=== PATIENT | female | born 1955 | race Caucasian/White ===

== ENCOUNTER → 2018-05-05 06:48 | Outpatient (CLI) | payer OTHER, SELFPAY ==
[2018-05-05 07:34] LABS: Add Manual Diff / Slide Review NO; Basophils Percent Auto 0.9 % (0-2); Eosinophils Percent Auto 2.8 % (2-4); Hematocrit 39.4 % (36-46); Hemoglobin 13.4 g/dL (12.0-16.0); Lymphocytes Percent Auto 44.2 % (25-40); Mean Corpuscular Hemoglobin 29.3 PG (26-34); Mean Corpuscular Volume 86.2 fL (80-100); Monocytes Percent Auto 9.2 % (3-14); Neutrophils Absolute Auto 2400 /uL (3000-5900); Neutrophils Percent Auto 42.9 % (50-75); Platelet Count 278 X10^3/uL (150-400); Red Blood Cell Count 4.58 X10^6/uL (4.0-5.2); White Blood Cell Count 5.7 X10^3/uL (4.5-11.0)
[2018-05-05 07:58] LABS: Alanine Aminotransferase 25 IU/L (9-52); Albumin 4.1 g/dL (3.5-5.0); Albumin Globulin Ratio 1.5 (1.0-2.8); Alkaline Phosphatase 93 U/L (38-126); Aspartate Aminotransferase 27 IU/L (14-36); BUN Creatinine Ratio 21.4 (6-22); Bilirubin Total 0.6 mg/dL (0.2-1.3); Blood Urea Nitrogen 15 mg/dL (7-17); Calcium 9.8 mg/dL (8.4-10.2); Carbon Dioxide 27 mmol/L (22-32); Chloride 105 mmol/L (98-107); Cholesterol 206 mg/dL (140-199); Estimated Glomerular Filt Rate > 60.0 mL/min (>60); Globulin 2.8 g/dL (1.7-4.1); Glucose 104 mg/dL (80-110); HDL Cholesterol 55 mg/dL (40-60); HEMOLYSIS 16 (0-50); LDL Cholesterol Calculated 128 mg/dL (<100); Potassium 3.9 mmol/L (3.4-5.1); Sodium 143 mmol/L (137-145); Total Protein 6.9 g/dL (6.3-8.2); Triglycerides 117 mg/dL (35-150)
[2018-05-05 09:45] LABS: TSH w/ Reflex to FT4 3.35 uIU/mL (0.47-4.68)
== END ==
PROVIDERS: PCP Family Medicine; Visit Provider Family Medicine
DX: Z00.00 Encounter for general adult medical examination without abnormal findings (principal); E66.9 Obesity, unspecified; I10 Essential (primary) hypertension
CPT/HCPCS: 36415; 80053; 80061; 84443; 85025

== ENCOUNTER → 2018-09-04 08:53 | Outpatient (CLI) | payer OTHER, SELFPAY ==
[2018-09-04 09:55] LABS: Vitamin D 25 Hydroxy (D3) 45.4 ng/mL (30.0-100.0)
== END ==
PROVIDERS: PCP Family Medicine; Visit Provider Family Medicine
DX: M81.0 Age-related osteoporosis without current pathological fracture (principal)
CPT/HCPCS: 36415; 82306

== ENCOUNTER → 2018-09-11 15:07 | Outpatient (CLI) | payer OTHER, SELFPAY | PROVIDERS: PCP Family Medicine; Visit Provider Family Medicine | DX: M85.851 Other specified disorders of bone density and structure, right thigh (principal); Z78.0 Asymptomatic menopausal state; Z85.3 Personal history of malignant neoplasm of breast | CPT/HCPCS: 77080 ==

== ENCOUNTER → 2018-09-16 09:35 | Oncology outpatient (ONC) | payer OTHER, SELFPAY ==
[2018-09-16 10:19] VITALS: BP 130/70; PULSE 72; RESP 16; TEMP 36.8; O2SAT 96
--- NOTE | 2018-09-16 10:35 | P.PNONC_ITS ---
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 She also had a family history of breast cancer. Her mother had bilateral breast cancers at a young age. She did have BRCA 1 and 2 testing which were negative. The patient elected undergo bilateral mastectomy. At the time of surgery, no tumor was seen in the right breast but in the left there was DCIS. [place] lymph node was negative. Since then, the patient has been doing well. She has no specific complaints. She has had a little bit of numbness and tingling along the incision but has not felt any masses or adenopathy. She denies any new aches or pains. No shortness of breath or cough. No GI complaints. She feels well today. Her past medical history is notable for osteopenia. She has a history of DCIS as described above. She has had prior knee surgery and cholecystectomy. She currently is on no prescription medications but does take a number of vitamins. She also uses occasional Claritin [id number]. She reports an allergy to Septra. Her family history is notable for mother and grandmother with breast cancers. There is no other family history of malignancy. So history: She is . 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 She does not smoke. She has very rare alcohol use. - Patient Self-Reported Symptoms SR ears, nose, mouth, throat issues: Ears ringing, Congestion SR Skin issues: Skin lesions or moles SR Musculoskeletal issues: Joint pain or swelling Home Medications and Allergies Home Medications Medication Instructions Recorded Confirmed Type loratadine [Claritin] 10 mg PO Q DAY PRN #0 05/17/11 09/16/18 History multivitamin tablet 1 tab PO DAILY #90 tab 05/12/18 09/16/18 Rx Allergies Allergy/AdvReac Type Severity Reaction Status Date / Time Sulfa (Sulfonamide AdvReac Intermediate HOT Verified 09/04/18 08:26 Antibiotics) FLASHES, [SULFA (SULFONAMIDE WEAK ANTIBIOTICS)] Exam - Constitutional positive no acute distress, positive average body habitus - Routine HEENT Exam Head: Present: normocephalic, atraumatic Eye: Present: EOMI, PERRL. Absent: conjunctival icterus, scleral injection - Routine Neck Exam Present: supple. Absent: lymphadenopathy, thyromegaly - Routine Chest/Breast/Axilla Exam Chest wall exam standard: Absent: tenderness Breast: Present: right mastectomy, left mastectomy Axillae: Absent: lymphadenopathy - Routine Respiratory Exam Present: Clear to auscultation bilaterally. Absent: rales, wheezes - Routine Cardiovascular Exam Present: RRR, S1, S2. Absent: murmur - Routine Abdominal Exam Present: soft, normoactive bowel sounds. Absent: rebound, guarding, organomegaly, mass - Routine Extremities Exam Absent: cyanosis, clubbing, edema - Routine Back/Spine Exam Back/Spine: Absent: paraspinal tenderness, vertebral tenderness - Routine Skin Exam Present: intact. Absent: petechiae, rash - Routine Neurological Exam Present: alert, oriented X3 - Routine Psychiatric Exam Present: normal affect, normal thought process Results - Imaging Additional studies: Procedures Bilateral simple mastectomy (01/17/15) Excision of axillary lymph node (01/17/15) Assessment and Plan (1) Ductal carcinoma in situ (DCIS) of left breast Onset Date: 07/18/15 Current visit: No Status: None 63-year-old woman with a history of DCIS. She is status post bilateral mastectomy. She is negative for BRCA mutations. Essentially, her risk for recurrence of breast cancer is practically 0. There is no specific monitoring or intervention that needs to occur. It be reasonable to do a physical exam of the chest wall perhaps annually. I did explain to the patient that DCIS by definition is not an invasive cancer and does not spread. Patient's to have had DCIS are at risk for development of 2nd breast cancers that can be either invasive or pre invasive. Adjuvant hormone therapy has shown a decrease in the risk of breast cancer recurrence but no change in overall mortality. However, because she has had bilateral mastectomy she is really not at any risk for development of new breast cancer. At least in theory, some residual breast cancer cells may have been left behind after mastectomy which could transform. However in practice I think this risk is so small that no specific intervention is needed. The risk of hormone therapy I think would by far outweigh the benefit. I have not recommended any specific treatment for her. I have not scheduled a follow-up appointment for her but would be happy see her again in the future should new issues arise.
[2024-05-19 18:41] LABS: Alanine Aminotransferase 18 IU/L (<35); Albumin Globulin Ratio 1.4 (1.0-2.8); Alkaline Phosphatase 102 U/L (38-126); Aspartate Aminotransferase 30 IU/L (14-36); BUN Creatinine Ratio 15.4 (6-22); Bilirubin Total 0.6 mg/dL (0.2-1.3); Blood Urea Nitrogen 10 mg/dL (7-17); Calcium 8.9 mg/dL (8.4-10.2); Carbon Dioxide 24 mmol/L (22-32); Chloride 105 mmol/L (98-107); Estimated Glomerular Filt Rate > 60 mL/min (>60); Globulin 2.8 g/dL (1.7-4.1); Glucose 102 mg/dL (80-110); HEMOLYSIS < 15 (0-50); Potassium 3.5 mmol/L (3.4-5.1); Sodium 136 mmol/L (137-145); Total Protein 6.8 g/dL (6.3-8.2)
== END ==
PROVIDERS: Nurse Practitioner Family; Family Provider Family Medicine; PCP Family Medicine
DX: Z09 Encounter for follow-up examination after completed treatment for conditions other than malignant neoplasm (principal); Z86.000 Personal history of in-situ neoplasm of breast; Z80.3 Family history of malignant neoplasm of breast; M85.80 Other specified disorders of bone density and structure, unspecified site; Z90.13 Acquired absence of bilateral breasts and nipples
CPT/HCPCS: 80053; 99215

== ENCOUNTER → 2019-03-05 16:03 | Outpatient (CLI) | payer OTHER, SELFPAY ==
--- NOTE | 2019-03-05 16:05 | DI.MRI.S_ITS ---
PROCEDURE: MR HEAD/BRAIN WO CON INDICATIONS: visual changes, possible ocular migraines, normal eye exam TECHNIQUE: Non-contrast axial T1 spin echo, axial T2 fast spin echo, sagittal and axial FLAIR, coronal T2 fast spin echo, axial gradient echo, axial diffusion and ADC through the brain. COMPARISON: None. FINDINGS: Image quality: Excellent. CSF spaces: Ventricles appear symmetric in size and shape. Basal cisterns are patent. No extra-axial fluid collections. Brain: No intracranial bleeds or mass effects. There is cerebral volume loss for age. There are periventricular and deep white matter chronic small vessel ischemic changes. Brainstem appears normal. Diffusion-weighted images show no acute ischemic insults. No chronic ischemic insults. Normal intravascular flow voids are present. Skull and face: Calvarial bone marrow is normal in signal. Orbits are normal. Sinuses: Sinuses and mastoids are clear. There is moderate rightward nasal septal deviation seen. IMPRESSION: No imaging explanation is found for this patient's presenting symptoms. No findings of acute or subacute infarction can be seen. Dictated by: Eduardo Carreno M.D. on 03/05/2019 at 17:02 Approved by: Eduardo Carreno M.D. on 03/05/2019 at 17:03
== END ==
PROVIDERS: Family Provider Family Medicine; PCP Family Medicine; Visit Provider Family Medicine
DX: H53.9 Unspecified visual disturbance (principal)
CPT/HCPCS: 70551

== ENCOUNTER → 2022-04-29 06:58 | Outpatient (CLI) | payer OTHER, SELFPAY ==
[2022-04-29 08:10] LABS: Cholesterol 206 mg/dL (140-199); Glucose 102 mg/dL (80-110); HDL Cholesterol 59 mg/dL (40-60); LDL Cholesterol Calculated 126 mg/dL (<100); Triglycerides 107 mg/dL (35-150)
== END ==
PROVIDERS: Family Provider Family Medicine; PCP Family Medicine; Referring Provider Family Medicine; Visit Provider Family Medicine
DX: Z13.1 Encounter for screening for diabetes mellitus (principal); Z13.6 Encounter for screening for cardiovascular disorders
CPT/HCPCS: 36415; 80061; 82947

== ENCOUNTER → 2022-08-20 10:39 | Outpatient (CLI) | payer OTHER, SELFPAY ==
--- NOTE | 2022-08-20 10:41 | DI.RAD.S_ITS ---
PROCEDURE: XR FINGER RT MIN 2V INDICATIONS: Right Third Finger nodule TECHNIQUE: AP hand, 2 views of the 3rd finger(s) acquired. COMPARISON: None. FINDINGS: Bones: No fractures or dislocations. No suspicious bony lesions. Generalized decrease in osseous mineralization noted. Distal interphalangeal joint space narrowing with marginal osteophytes present. Soft tissue nodule noted over 3rd DIP osteophyte Soft tissues: No suspicious soft tissue calcifications. IMPRESSION: Soft tissue nodule probably related to prominent dorsal 3rd DIP osteophyte Approved by: Orlin Robles M.D. on 08/20/2022 at 15:37
== END ==
PROVIDERS: Family Provider Family Medicine; PCP Family Medicine; Referring Provider Family Medicine; Visit Provider Family Medicine
DX: R22.31 Localized swelling, mass and lump, right upper limb (principal)
CPT/HCPCS: 73140

== ENCOUNTER → 2023-07-02 14:23 | Outpatient (CLI) | payer OTHER, SELFPAY ==
[2023-07-02 15:00] LABS: Hematocrit 40.9 % (36-46); Hemoglobin 13.9 g/dL (12.0-16.0); Mean Corpuscular HGB Conc 33.9 % (30-36); Mean Corpuscular Hemoglobin 29.6 PG (26-34); Mean Corpuscular Volume 87.3 fL (80-100); Platelet Count 297 X10^3/uL (150-400); Red Blood Cell Count 4.68 X10^6/uL (4.0-5.2); White Blood Cell Count 6.5 X10^3/uL (4.5-11.0)
[2023-07-02 15:32] LABS: Alanine Aminotransferase 23 IU/L (<35); Albumin 4.3 g/dL (3.5-5.0); Albumin Globulin Ratio 1.5 (1.0-2.8); Alkaline Phosphatase 138 U/L (38-126); Aspartate Aminotransferase 30 IU/L (14-36); BUN Creatinine Ratio 19.7 (6-22); Bilirubin Total 0.6 mg/dL (0.2-1.3); Blood Urea Nitrogen 14 mg/dL (7-17); Calcium 10.5 mg/dL (8.4-10.2); Carbon Dioxide 26 mmol/L (22-32); Chloride 104 mmol/L (98-107); Cholesterol 226 mg/dL (140-199); Estimated Glomerular Filt Rate > 60 mL/min (>60); Globulin 2.9 g/dL (1.7-4.1); Glucose 100 mg/dL (80-110); HDL Cholesterol 60 mg/dL (40-60); HEMOLYSIS < 15 (0-50); LDL Cholesterol Calculated 145 mg/dL (<100); Sodium 137 mmol/L (137-145); Total Protein 7.2 g/dL (6.3-8.2); Triglycerides 106 mg/dL (35-150)
[2023-07-02 16:06] LABS: Vitamin D 25 Hydroxy (D3) 35.8 ng/mL (30.0-100.0)
[2023-07-02 16:18] LABS: TSH w/ Reflex to FT4 1.92 uIU/mL (0.47-4.68)
== END ==
PROVIDERS: Family Provider Family Medicine; PCP Internal Medicine; Referring Provider Internal Medicine; Visit Provider Internal Medicine
DX: E78.2 Mixed hyperlipidemia (principal); M85.80 Other specified disorders of bone density and structure, unspecified site; Z85.3 Personal history of malignant neoplasm of breast; E55.9 Vitamin D deficiency, unspecified
CPT/HCPCS: 80053; 80061; 82306; 84443; 85027

== ENCOUNTER → 2023-07-04 09:40 | Outpatient (CLI) | payer OTHER, SELFPAY ==
--- NOTE | 2023-07-04 09:41 | DI.RAD.S_ITS ---
Bone Density Report Name: DANUTA LACKEY Age: 68 Sex: Female Ethnicity: White Date of : 1955 Indication: osteopenia; Referring Provider: CHARLIE VORA Study: Bone densitometry was performed. Exam Date: July 04, 2023 Accession number: [id number] Bone Density: Region BMD T-score Z-score Classification AP Spine(L1-L4) 1.109 0.6 2.6 Normal Femoral Neck (Left) 0.595 -2.3 -0.5 Osteopenia Total Hip (Left) 0.706 -1.9 -0.5 Osteopenia Femoral Neck (Right) 0.595 -2.3 -0.5 Osteopenia Total Hip (Right) 0.751 -1.6 -0.1 Osteopenia Total Hip Mean 0.728 -1.8 -0.3 Osteopenia World Health Organization criteria for BMD impression classify patients as: Normal (T-score at or above -1.0), Osteopenia (T-score between -1.0 and -2.5), or Osteoporosis (T-score at or below -2.5). 10-year Fracture Risk(1): Major Osteoporotic Fracture 12% Hip Fracture 2.3% Reported Risk Factors: [place] (), Neck BMD=0.595, BMI=37.1 (1) FRAX(R) Version 3.08. Fracture probability calculated for an untreated patient. Fracture probability may be lower if the patient has received treatment. Previous Exams: -- Region Exam Age BMD T-score BMD Change BMD Change Date g/cm2 vs Baseline vs Previous -- AP Spine (L1-L4) 07/04/2023 68 1.109 0.6 -0.091 (-7.6%)# -0.091 (-7.6%)# 09/11/2018 63 1.200 1.4 Total Hip(Left) 07/04/2023 68 0.706 -1.9 -0.087 (-11.0%)# -0.087 (-11.0%)# 09/11/2018 63 0.793 -1.2 Total Hip(Right) 07/04/2023 68 0.751 -1.6 -0.031 (-4.0%)# -0.031 (-4.0%)# 09/11/2018 63 0.782 -1.3 -- *Denotes significance at 95% confidence level, LSC for AP Spine = 0.022 g/cm2, LSC for Total Hip = 0.027 g/cm2 # Denotes dissimilar scan types or analysis methods Impression: The patient has low bone mass, based on the Left Femoral Neck T-score. The patient has an estimated ten-year risk of hip fracture of 2.3% and an estimated ten-year risk of major fracture of 12%, based on the WHO FRAX algorithm. No significant bone loss was observed. Discussion: BONE DENSITY IS LOW AT ONE OR MORE SKELETAL SITES. This patient's lowest T-score is low at one or more skeletal sites. It meets the World Health Organization's (WHO) criteria for low bone mass (T-score between -1.0 and -2.5). The patient's 10-year risk of fracture as calculated by FRAX is less than the threshold where pharmacological therapy is recommended by the National Osteoporosis Foundation (NOF). However, all treatment decisions require clinical judgment and consideration of individual patient factors, including patient preferences, comorbidities, previous drug use, risk factors not captured in the FRAX model (e.g., frailty, falls, vitamin D deficiency, increased bone turnover, interval significant decline in bone density) and possible under or overestimation of fracture risk by FRAX. The patient should follow a healthful lifestyle (good nutrition with adequate calcium and vitamin D, and appropriate weight-bearing exercise). Follow-Up: Consider repeating this study in 2 to 3 years to reassess this patient's status, or sooner if there is some new clinical indication. Reported by: BO VALVERDE M.D on 07/04/2023 10:24:00 AM.
[2023-07-06 09:57] LABS: Calcium 10.1 mg/dL (8.7-10.3); Parathyroid Hormone, Intact 100 pg/mL (15-65)
== END ==
PROVIDERS: Family Provider Family Medicine; PCP Internal Medicine; Referring Provider Internal Medicine; Visit Provider Internal Medicine
DX: Z78.0 Asymptomatic menopausal state (principal); E83.52 Hypercalcemia; M85.852 Other specified disorders of bone density and structure, left thigh
CPT/HCPCS: 36415; 77080; 82310; 83970

== ENCOUNTER → 2023-07-11 08:50 | Outpatient (CLI) | payer OTHER, SELFPAY ==
--- NOTE | 2023-07-11 08:51 | DI.US.S_ITS ---
PROCEDURE: US THYROID INDICATIONS: HYPERPARATHYROIDISM TECHNIQUE: Real-time scanning was performed of the thyroid gland, with image documentation. COMPARISON: None. FINDINGS: Right: Thyroid lobe measures 4.9 x 1.6 x 1.9 cm, and is homogeneous in echotexture. Left: Thyroid lobe measures 3.7 x 1.2 x 1.5 cm, and is homogenous in echotexture. Isthmus: 4 mm thick. Nodule number: 1 Location: Right inferior medial Size: 1.6 x 0.9 x 1.3 cm. Composition: Solid Echogenicity: Hypoechoic Shape: wider than tall. Margins: Smooth Echogenic foci: Punctate Total points: 7 ACR TI-RADS category: 5 Nodule number: 2 Location: Right inferior lateral Size: 0.8 x 0.8 x 0.8 cm. Composition: Solid Echogenicity: Hypoechoic Shape: wider than tall. Margins: Smooth Echogenic foci: None Total points: 4 ACR TI-RADS category: 4 Nodule number: 3 Location: Right mid Size: 0.5 x 0.6 x 0.4 cm. Composition: Mixed Echogenicity: Hypoechoic Shape: wider than tall. Margins: Smooth Echogenic foci: Punctate Total points: 6 ACR TI-RADS category: 4 Nodule number: 4 Location: Left superior lateral Size: 0.8 x 0.4 x 0.6 cm. Composition: Mixed Echogenicity: Hypoechoic Shape: wider than tall. Margins: Smooth Echogenic foci: None Total points: 3 ACR TI-RADS category: 3 Nodule number: 5 Location: Left mid Size: 0.6 x 0 x 0 5 cm. Composition: Solid Echogenicity: Hypoechoic Shape: wider than tall. Margins: Smooth Echogenic foci: Punctate Total points: 7 ACR TI-RADS category: 5 Nodule number: 6 Location: Left medial Size: 0.8 x 0.5 x 0.7 cm. Composition: Solid Echogenicity: Hypoechoic Shape: wider than tall. Margins: Smooth Echogenic foci: None Total points: 4 ACR TI-RADS category: 4 IMPRESSION: Lesions 2, 3 and 6 are considered category 4. Secondary to size, no additional follow-up is recommended. Lesion 1 is considered category 5. Secondary to size, FNA is recommended. Lesion 4 is considered category 3. Secondary to size, no additional follow-up is recommended. Lesion 5 is considered category 5. FNA is recommended. ACR TI-RADS definitions and recommendations: TI-RADS 1 (benign): 0 points. FNA not needed. TI-RADS 2 (not suspicious): 2 points. FNA not needed. TI-RADS 3 (mildly suspicious): 3 points. * FNA if 2.5 cm or larger, follow up if 1.5 cm or larger (at 1, 3, and 5 years). TI-RADS 4 (moderately suspicious): 4-6 points. * FNA if 1.5 cm or larger, follow up if 1 cm or larger (at 1, 2, 3, and 5 years). TI-RADS 5 (highly suspicious): 7 points or more. * FNA if 1 cm or larger, follow up if 0.5 cm or larger (every year for 5 years). Dictated by: Alma Delia Bro M.D. on 07/11/2023 at 19:49 Approved by: Alma Delia Bro M.D. on 07/11/2023 at 19:57
== END ==
PROVIDERS: Family Provider Family Medicine; PCP Internal Medicine; Referring Provider Internal Medicine; Visit Provider Internal Medicine
DX: E04.2 Nontoxic multinodular goiter; E21.3 Hyperparathyroidism, unspecified
CPT/HCPCS: 76536

== ENCOUNTER → 2023-07-18 08:25 | Outpatient (CLI) | payer OTHER, SELFPAY ==
--- NOTE | 2023-07-18 08:26 | DI.NM.S_ITS ---
PROCEDURE: NM PARATHYROID SPECT RADIOPHARMACEUTICAL: 27.4 mCi Tc-99m sestamibi IV. INDICATIONS: hyperparathyroidism TECHNIQUE: After intravenous administration of Tc-99m sestamibi, anterior planar images of the neck and mediastinum were obtained at approximately 10 minutes and 2-3 hours. SPECT images were acquired after the 10 minute planar images. COMPARISON: [facility], , THYROID, 07/11/2023, 8:57. FINDINGS: On the early images, the thyroid gland is bilobed and has normal size and morphology. There is no focal increased activity in the thyroid bed. The delayed images show no preferential tracer retention in the thyroid bed to suggest parathyroid adenoma. The SPECT images demonstrate no abnormal activity in the neck. IMPRESSION: No definitive parathyroid adenoma is identified. Consider CT using parathyroid protocol with and without contrast for further evaluation. Dictated by: Jessica Grigsby M.D. on 07/18/2023 at 14:14 Approved by: Jessica Grigsby M.D. on 07/18/2023 at 14:33
== END ==
PROVIDERS: Family Provider Family Medicine; PCP Internal Medicine; Referring Provider Internal Medicine; Visit Provider Internal Medicine
DX: E21.3 Hyperparathyroidism, unspecified (principal)
CPT/HCPCS: 78070; A9500

== ENCOUNTER → 2024-05-19 15:04 | Outpatient (ROUT) | payer OTHER, SELFPAY | LOC: LAB 05-24 15:04 | PROVIDERS: Family Provider Family Medicine; PCP Internal Medicine; Visit Provider Nurse Practitioner Family | DX: U07.1 COVID-19 (principal) | CPT/HCPCS: 80053 ==

== ENCOUNTER → 2024-06-21 08:47 | Outpatient (CLI) | payer OTHER, SELFPAY ==
[2024-06-21 11:10] LABS: Alanine Aminotransferase 20 IU/L (<35); Albumin 4.2 g/dL (3.5-5.0); Albumin Globulin Ratio 1.8 (1.0-2.8); Alkaline Phosphatase 109 U/L (38-126); Aspartate Aminotransferase 28 IU/L (14-36); BUN Creatinine Ratio 26.6 (6-22); Bilirubin Total 0.7 mg/dL (0.2-1.3); Blood Urea Nitrogen 21 mg/dL (7-17); Calcium 10.1 mg/dL (8.4-10.2); Carbon Dioxide 27 mmol/L (22-32); Chloride 105 mmol/L (98-107); Cholesterol 216 mg/dL (140-199); Estimated Glomerular Filt Rate > 60 mL/min (>60); Globulin 2.4 g/dL (1.7-4.1); Glucose 106 mg/dL (80-110); HDL Cholesterol 65 mg/dL (40-60); HEMOLYSIS < 15 (0-50); LDL Cholesterol Calculated 136 mg/dL (<100); Potassium 4.3 mmol/L (3.4-5.1); Sodium 139 mmol/L (137-145); Total Protein 6.6 g/dL (6.3-8.2); Triglycerides 76 mg/dL (35-150)
[2024-06-21 11:25] LABS: Vitamin D 25 Hydroxy (D3) 45.9 ng/mL (30.0-100.0)
== END ==
PROVIDERS: Family Provider Family Medicine; PCP Internal Medicine; Referring Provider Internal Medicine; Visit Provider Internal Medicine
DX: E78.2 Mixed hyperlipidemia (principal); E21.3 Hyperparathyroidism, unspecified; E83.52 Hypercalcemia
CPT/HCPCS: 36415; 80053; 80061; 82306

== ENCOUNTER 2024-09-21 08:16 | Day surgery (SDC) | payer OTHER, SELFPAY ==
[2024-09-21 08:45] VITALS: BP 120/75; PULSE 84; RESP 18; TEMP 37; O2SAT 96
--- NOTE | 2024-09-21 09:34 | P.HP_ITS ---
History of Present Illness History of Present Illness Date Patient Seen: 09/21/24 Time Patient Seen: 09:35 Chief complaint: Colonoscopy Narrative: 69-year-old woman here for screening colonoscopy. Last colonoscopy 2016. Family history of colonic polyps in first-degree relatives. Recent constipation otherwise no abdominal concerns. [facility] Medical History (Updated 06/21/24 @ 08:33 by Bang Santiago MD) RBBB (right bundle branch block with left anterior fascicular block) Ganglion, finger of right hand Family history of colon polyps, unspecified Parathyroid adenoma Multiple thyroid nodules Hyperparathyroidism Hypercalcemia Obesity (BMI 30.0-34.9) Primary osteoarthritis involving multiple joints Osteopenia History of left breast cancer Mixed hyperlipidemia Chicken pox Measles Mumps Osteoarthritis (~2004) BRCA negative (2014) Ductal carcinoma in situ (DCIS) of left breast (2013) Surgical History (Updated 07/02/23 @ 14:08 by Bang Santiago MD) H/O bilateral mastectomy Anesthesia Status post arthroscopy (2007) Status post colonoscopy (2005) Status post cholecystectomy (1998) Family History Mother Cancer Heart disease Hypertension Fall Father Diabetes mellitus Brother No problems noted. Sister No problems noted. Sister No problems noted. Social History marital status: household members: spouse pets and animals: Yes education level: college leisure activities: reading other: cooking seatbelt use: always water heater temp set < 120 deg: Yes working smoke detector in home: Yes fire extinguisher in home: Yes carbon monox detector in home: Yes Smoking Status: Never smoker alcohol intake: never during the past year weight has: decreased > 10 lbs well-balanced diet: daily or most days daily servings fruits/ve-4 eating out: 1-3 times/week Type(s) of exercise: walking frequency: 1-2 times per week duration: 15-30 minutes/day Meds Home Medications and Allergies Home Medications Medication Instructions Recorded Confirmed Type loratadine 10 mg tablet (Claritin) 10 mg PO Q DAY PRN ##0 05/17/11 06/21/24 History multivitamin (Multiple Vitamins 1 tab PO DAILY #90 tabs 05/12/18 06/21/24 Rx tablet) krill oil 500 mg capsule 500 mg PO DAILY Recommended by 07/02/23 06/21/24 History Cousins Rickie Renner #1 ea 07/04/23 06/21/24 Rx Bilateral Mastectomy Bras #2 ea 07/10/23 06/21/24 Rx benzonatate 200 mg capsule 200 mg PO TID #30 caps 05/27/24 06/21/24 Rx peg 3350-electrolytes 236 240 ml PO Q10M #4,000 mL 08/16/24 Rx gram-22.74 gram-6.74 gram-5.86 gram solution (Golytely) Allergies Allergy/AdvReac Type Severity Reaction Status Date / Time Sulfa (Sulfonamide AdvReac Intermediate HOT Verified 06/21/24 08:00 Antibiotics) FLASHES, [SULFA (SULFONAMIDE WEAK ANTIBIOTICS)] Exam Vital Signs (past 8 hours): - 09/21/24 08:45 Temperature 98.6 F Pulse Rate 84 Respiratory Rate 18 Blood Pressure 120/75 Pulse Oximetry 96 Oxygen Delivery Method Room Air Oxygen Delivery Method Room Air Narrative Exam Narrative: General adult woman alert oriented no acute distress Chest nonlabored respiration Extremities warm well perfused Assessment & Plan Assessment & Plan narrative: The patient requires colorectal screening and colonoscopy is recommended. Technical details were discussed. Risks, benefits, alternatives explained. Risks including but not limited to myocardial infarction, aspiration, bleeding, pain, missed lesion, incomplete examination, need for further radiographic studies, intestinal injury, and need for major abdominal surgery were discussed. All questions were answered to their satisfaction, and they are in agreement with this plan. Time-Based Coding :: [TOTAL MINUTES] spent with patient and on the chart (including review of chart, obtaining history, exam, reviewing outside data, placing orders, documenting exam and treatment plan, and counseling patient) on [DATE].
--- NOTE | 2024-09-21 09:37 | P.OP.COLON_ITS ---
Operative Date/Time/Diagnoses Date of procedure: 09/21/24 Time of procedure: 09:37 Pre-op diagnosis: colorectal screening Procedure & Clinicians Study performed: Screening colonoscopy Same procedure as scheduled: Yes Indications: Screening Surgeon: Jonny Wren Procedure Notes Procedure in detail: The history and physical was performed/updated and the patient is ASA class is 2. The procedure was discussed in detail with the patient. Potential risks complications including infection, bleeding, missed diagnosis, perforation, need for surgery, and were explained. Their questions were answered and informed consent was obtained. Patient was brought to the procedure room and placed standard monitoring equipment. The patient's vital signs were monitored continuously throughout the entire procedure. Prior to starting time-out was performed. The patient was placed in the left lateral recumbent position. Procedural sedation was administered by anesthesia. Examination began with a thorough inspection of the perianal area there was no evidence of fissures, fistulae, external hemorrhoids or cutaneous malignancy. The colonoscopy scope was then placed into the anal canal and was advanced to the cecum, which was identified by the ileocecal valve, the appendiceal orifice and the confluence of the taenia. The scope was then slowly withdrawn examining colon thoroughly in all directions, irrigating it of any residual stool. The scope was retroflexed within the rectum The patient tolerated the procedure well. They will be discharged once criteria are met. The prep was of good/excellent quality. The withdrawl time was 7 minutes. FINDINGS * Unremarkable colonoscopy. Normal healthy colonic mucosa without mass or polyps. Specimen(s): none sent Impression: Normal colonoscopy Post-procedure Plan for aftercare: No need for further colonoscopy Disposition: same day surgery
[2024-09-21 09:58] VITALS: BP 94/52; PULSE 56; RESP 21; TEMP 36.3; O2SAT 97
[2024-09-21 10:02] VITALS: BP 96/53; PULSE 59; RESP 19; O2SAT 96
[2024-09-21 10:06] VITALS: BP 98/57; PULSE 59; RESP 18; TEMP 36.3; O2SAT 98
[2024-09-21 10:12] VITALS: BP 111/64; PULSE 59; RESP 13; O2SAT 99
--- NOTE | 2024-09-21 10:43 | PM.HP.1 ---
History of Present Illness History of Present Illness Chief complaint: Colonoscopy Narrative: 69-year-old woman here for diagnostic colonoscopy. Last colonoscopy 2016. Family history of colonic polyps in first-degree relatives. [facility] Medical History (Updated 06/21/24 @ 08:33 by Bang Santiago MD) RBBB (right bundle branch block with left anterior fascicular block) Ganglion, finger of right hand Family history of colon polyps, unspecified Parathyroid adenoma Multiple thyroid nodules Hyperparathyroidism Hypercalcemia Obesity (BMI 30.0-34.9) Primary osteoarthritis involving multiple joints Osteopenia History of left breast cancer Mixed hyperlipidemia Chicken pox Measles Mumps Osteoarthritis (~2004) BRCA negative (2014) Ductal carcinoma in situ (DCIS) of left breast (2013) Surgical History (Updated 07/02/23 @ 14:08 by Bang Santiago MD) H/O bilateral mastectomy Anesthesia Status post arthroscopy (2007) Status post colonoscopy (2005) Status post cholecystectomy (1998) Family History Mother Cancer Heart disease Hypertension Fall Father Diabetes mellitus Brother No problems noted. Sister No problems noted. Sister No problems noted. Social History marital status: household members: spouse pets and animals: Yes education level: college leisure activities: reading other: cooking seatbelt use: always water heater temp set < 120 deg: Yes working smoke detector in home: Yes fire extinguisher in home: Yes carbon monox detector in home: Yes Smoking Status: Never smoker alcohol intake: never during the past year weight has: decreased > 10 lbs well-balanced diet: daily or most days daily servings fruits/ve-4 eating out: 1-3 times/week Type(s) of exercise: walking frequency: 1-2 times per week duration: 15-30 minutes/day Meds Home Medications and Allergies Home Medications Medication Instructions Recorded Confirmed Type loratadine 10 mg tablet (Claritin) 10 mg PO Q DAY PRN ##0 05/17/11 06/21/24 History multivitamin (Multiple Vitamins 1 tab PO DAILY #90 tabs 05/12/18 06/21/24 Rx tablet) krill oil 500 mg capsule 500 mg PO DAILY Recommended by 07/02/23 06/21/24 History Cousins Rickie Renner #1 ea 07/04/23 06/21/24 Rx Bilateral Mastectomy Bras #2 ea 07/10/23 06/21/24 Rx benzonatate 200 mg capsule 200 mg PO TID #30 caps 05/27/24 06/21/24 Rx Allergies Allergy/AdvReac Type Severity Reaction Status Date / Time Sulfa (Sulfonamide AdvReac Intermediate HOT Verified 06/21/24 08:00 Antibiotics) FLASHES, [SULFA (SULFONAMIDE WEAK ANTIBIOTICS)] Exam Vital Signs (past 8 hours): - 09/21/24 08:45 09/21/24 09:58 09/21/24 10:02 Temperature 98.6 F 97.3 F L Pulse Rate 84 56 L 59 L Respiratory Rate 18 21 19 Blood Pressure 120/75 94/52 L 96/53 L Pulse Oximetry 96 97 96 Oxygen Delivery Method Room Air Room Air Room Air 09/21/24 10:06 09/21/24 10:12 Temperature 97.4 F L Pulse Rate 59 L 59 L Respiratory Rate 18 13 Blood Pressure 98/57 L 111/64 Pulse Oximetry 98 99 Oxygen Delivery Method Room Air Room Air Oxygen Delivery Method Room Air Narrative Exam Narrative: General adult woman alert oriented no acute distress Chest nonlabored respiration Extremities warm well perfused Assessment & Plan Assessment and plan (1) Family history of colon polyps, unspecified: Status: Acute Assessment & Plan narrative: The patient requires colorectal screening and colonoscopy is recommended. Technical details were discussed. Risks, benefits, alternatives explained. Risks including but not limited to myocardial infarction, aspiration, bleeding, pain, missed lesion, incomplete examination, need for further radiographic studies, intestinal injury, and need for major abdominal surgery were discussed. All questions were answered to their satisfaction, and they are in agreement with this plan. Time-Based Coding :: [TOTAL MINUTES] spent with patient and on the chart (including review of chart, obtaining history, exam, reviewing outside data, placing orders, documenting exam and treatment plan, and counseling patient) on [DATE].
== END 2024-09-21 10:20 | disposition home or self-care (01) ==
PROVIDERS: Family Provider Family Medicine; PCP Internal Medicine; Referring Provider Surgery; Visit Provider Surgery
PROC: 0DJD8ZZ Inspection of Lower Intestinal Tract, Via Natural or Artificial Opening Endoscopic (ICD-10-PCS; CPT 45378; principal; 2024-09-21 09:15)
DX: Z12.11 Encounter for screening for malignant neoplasm of colon (principal); Z83.719 Family history of colon polyps, unspecified
CPT/HCPCS: G0105; J2704

== ENCOUNTER → 2025-06-22 08:31 | Outpatient (CLI) | payer OTHER, SELFPAY ==
[2025-06-22 09:29] LABS: Hematocrit 38.9 % (36-46); Hemoglobin 13.5 g/dL (12.0-16.0); Mean Corpuscular HGB Conc 34.6 % (30-36); Mean Corpuscular Hemoglobin 30.4 PG (26-34); Mean Corpuscular Volume 87.8 fL (80-100); Platelet Count 266 X10^3/uL (150-400)
[2025-06-22 09:47] LABS: Hemoglobin A1C% w Est Avg Glu 5.5 % (4.0-6.0)
[2025-06-22 09:50] LABS: Alanine Aminotransferase 19 IU/L (<35); Albumin 4.2 g/dL (3.5-5.0); Albumin Globulin Ratio 1.8 (1.0-2.8); Alkaline Phosphatase 86 U/L (38-126); Blood Urea Nitrogen 19 mg/dL (7-17); Calcium 10.2 mg/dL (8.4-10.2); Carbon Dioxide 26 mmol/L (22-32); Chloride 105 mmol/L (98-107); Cholesterol 208 mg/dL (140-199); Estimated Glomerular Filt Rate > 60 mL/min (>60); Globulin 2.3 g/dL (1.7-4.1); Glucose 103 mg/dL (70-99); HDL Cholesterol 62 mg/dL (40-60); HEMOLYSIS < 15 (0-50); Potassium 3.6 mmol/L (3.4-5.1); Sodium 139 mmol/L (137-145); Total Protein 6.5 g/dL (6.3-8.2); Triglycerides 89 mg/dL (35-150)
[2025-06-22 10:16] LABS: TSH w/ Reflex to FT4 3.33 uIU/mL (0.47-4.68)
== END ==
PROVIDERS: PCP Internal Medicine; Referring Provider Internal Medicine; Visit Provider Internal Medicine
DX: E21.3 Hyperparathyroidism, unspecified (principal); R73.01 Impaired fasting glucose; E78.2 Mixed hyperlipidemia
CPT/HCPCS: 36415; 80053; 80061; 83036; 84443; 85027